=== PATIENT | male | born 1945 | race Caucasian/White ===

== ENCOUNTER → 2019-03-23 | Outpatient (REF) | payer MEDICARE ==
[2019-03-23 15:21] LABS: CHLAMYDIA DNA AMPLIFICATION NEGATIVE (NEGATIVE); GC DNA AMPLIFICATION NEGATIVE (NEGATIVE)
== END ==
LOC: M LAB REF 13:23
PROVIDERS: ATTEND Nurse Practitioner Adult Health
DX: R30.0 Dysuria (principal)

== ENCOUNTER → 2021-02-13 | Outpatient (CLI) | payer MEDICARE ==
--- NOTE | 2021-02-13 09:00 | REP ---
INDICATION: AAA, LUNG CANCER SCREENING. COMPARISON: None. TECHNIQUE: Retroperitoneal sonography. Abdominal aortic aneurysm survey study. FINDINGS: Scanning through the retroperitoneum demonstrates that the abdominal aorta is normal in caliber at the level of the diaphragmatic hiatus measuring 2.7 x 2.7 cm in AP by transverse dimension respectively. The measurements of the aorta at the level of the renal artery origins is 2.1 x 2.0 cm, AP by transverse dimension respectively. The distal aorta tapers to 1.9 x 2.6 cm AP by transverse dimension. The right and left common iliac arteries are normal measuring 1.0 and 1.0 cm in AP dimension respectively. No aneurysm is seen. No periaortic disease is observed. Mild diffuse plaquing is noted. IMPRESSION: Negative abdominal aortic sonography. <Electronically signed by Edmundo Vanegas > 02/13/21 0835
--- NOTE | 2021-02-13 09:27 | REP ---
INDICATION: AAA, LUNG CANCER SCREENING- U/S FIRST. COMPARISON: Comparison chest x-ray February 13, 2016.. TECHNIQUE: Dose reduction was performed utilizing CARE dose with automated adjustment of the kV and MAS according to patient size; iterative reconstruction, automated exposure control, as well as adaptive dose shielding. Helical scanning is acquired and 3 mm axial images are provided at lung only windows. FINDINGS: Digital preliminary electronic console display operator radiograph is unremarkable. There is some vascular calcification in the aorta, great vessels, and coronary arteries mild in degree. There is no evidence of infiltrate, mass, or significant pulmonary parenchymal nodule. However, there is a rounded density partially surrounded by epicardial fat in the right anterior cardiophrenic angle region measuring 1.6 cm in greatest diameter. This may be a epicardial lymph node which would be borderline in size or possibly, pleural based nodule in the right middle lobe although this is considered less likely. This is difficult to evaluate in the absence of multiplanar reconstruction images. There is no other evidence of mediastinal adenopathy. Exam is otherwise unremarkable. IMPRESSION: Lung RADS category 0 incomplete. 1.6 cm nodular density in the right cardiophrenic angle, right middle lobe pulmonary parenchymal nodule versus epicardial lymph node. Standard chest CT study recommended with IV contrast and multiplanar re-formation images. <Electronically signed by Edmundo Vanegas > 02/13/21 [id number]
== END ==
LOC: M RAD 06:24
PROVIDERS: ATTEND Internal Medicine
DX: R91.8 Other nonspecific abnormal finding of lung field (principal); F17.210 Nicotine dependence, cigarettes, uncomplicated

== ENCOUNTER → 2021-03-12 | Outpatient (CLI) | payer MEDICARE ==
[~2021-03-12] MED LIST: ISOVUE-370 76% 100ML VIAL As Ordered ONE
--- NOTE | 2021-03-12 16:02 | REP ---
INDICATION: PULMONARY NODULE. COMPARISON: 02/13/2021. TECHNIQUE: CT chest performed following the intravenous administration of 100 cc of Isovue 370. Sagittal and coronal reconstruction images are performed. FINDINGS: As seen on the prior screening lung CT, there is a soft tissue nodule at the right cardiophrenic angle. This measures 1.5 cm in diameter. The margins are irregular. There is a punctate calcification within. The majority of the nodule appears to be located in the epicardial fat pad, but the nodule does project somewhat into the right middle lobe. No other pulmonary nodule is seen bilaterally. There is no infiltrate. There is no mediastinal, hilar or chest wall lymphadenopathy. There is no pleural or pericardial effusion. The heart is normal in size. The thoracic aorta is normal in caliber with no aneurysm or dissection. The visualized upper abdominal structures appear unremarkable. There are degenerative changes of the spine without compression deformity. IMPRESSION: Soft tissue nodule at the right cardiophrenic angle primarily located within the epicardial fat. Its margins are irregular and maximum diameter is 1.5 cm. It contains a punctate calcification. Recommend tissue sampling or PET-CT to further evaluate. <Electronically signed by Graham Delong > 03/12/21 [id number]
== END ==
LOC: M RAD 13:53
PROVIDERS: ATTEND Nurse Practitioner Adult Health
DX: R91.1 Solitary pulmonary nodule (principal)
CPT/HCPCS: 71260; Q9967

== ENCOUNTER → 2021-03-18 | Outpatient (CLI) | payer MEDICARE ==
--- NOTE | 2021-03-18 14:08 | REP ---
INDICATION: VERTIGO W/ MARKS'S. COMPARISON: No comparison brain imaging.. TECHNIQUE: Axial and sagittal imaging planes are utilized for T1 and T2-weighted scans. Sequences include spin-echo, fast spin echo, FLAIR, and diffusion weighted sequences. Gadolinium enhancement dose is 18 mL of intravenous ProHance. Post gadolinium enhanced MR T1 weighted images are acquired in all 3 planes. FINDINGS: No bony calvarial lesion is seen. Craniocervical junction upper cervical cord are normal in appearance. There is T2 hyperintense fluid occupying much of the left mastoid sinus. There is no other MR evidence of significant paranasal sinus disease.. No intraorbital abnormality is appreciated. The deep facial soft tissues are unremarkable and symmetric. There is no evidence of intracranial hemorrhage or mass lesion. There are numerous foci of subcortical and periventricular white matter hyperintensity on FLAIR images bilaterally throughout the supratentorial brain. There are dilated perivascular space is noted. This latter finding is a normal variant. Diffusion-weighted scans show no evidence to suggest acute ischemia or other cause of restricted diffusion. No extra-axial fluid collection or midline shift is seen. Postcontrast imaging shows enhancement in normal vasculature. No abnormal contrast enhancement is appreciated. IMPRESSION: Numerous foci of T2 hyperintensity in the subcortical and periventricular white matter of the supratentorial brain bilaterally. This is most compatible with small vessel atherosclerotic changes. No abnormal contrast enhancement is seen. There is no evidence of mass, infarction, or bleed. There is T2 hyperintense fluid occupying much of the left mastoid sinus consistent with left mastoid sinusitis. <Electronically signed by Edmundo Vanegas > 03/18/21 [id number]
== END ==
LOC: M PLARAD 12:35
PROVIDERS: ATTEND Nurse Practitioner Adult Health
DX: R51.9 Headache, unspecified (principal); R42 Dizziness and giddiness

== ENCOUNTER → 2021-04-14 | Outpatient (CLI) | payer MEDICARE ==
--- NOTE | 2021-04-15 09:41 | REP ---
INDICATION: DIAGNOSING SOLITARY PULMONARY NODULE R91.1. COMPARISON: None. TECHNIQUE: After the intravenous administration of 9.49 mCi of FDG 18 triplane whole-body PET-CT was performed from the skull base to the mid thigh. Previous CT scan of the chest 03/12/2021 was reviewed. FINDINGS: There is no abnormal hypermetabolic activity seen in the neck, chest, abdomen, or pelvis. The nodule seen on the previous CT in the right anterior cardiophrenic angle shows no avidity for FDG 18 at all. IMPRESSION: Negative PET-CT as described above. <Electronically signed by Yuri Contreras > 04/15/21 0910
== END ==
LOC: M PLARAD 08:50
PROVIDERS: ATTEND Nurse Practitioner Adult Health
DX: R91.1 Solitary pulmonary nodule (principal)
CPT/HCPCS: 78815; A9552

== ENCOUNTER → 2021-07-31 | Outpatient (CLI) | payer MEDICARE ==
[~2021-07-31] MED LIST changes: +ATOR40TA75 PO; +ELIQ5TAB PO; +FLUTISP; +INVO300T PO; -ISOVUE-370 76% 100ML VIAL As Ordered ONE; +METF10004 PO; +OZEM2INJ2 ID; +TAMS1CAP17 PO
--- NOTE | 2021-07-31 08:57 | PFTRPT ---
Site: [facility], [address] [place] [address], [id number] ID: [id number] Name: ARIEL LAUGHLIN Visit Date: 07/31/2021 Second ID: [id number] Referring Doctor: Iglesia Flores MD Reviewing Doctor: Iglesia Flores MD Circle Beveler: Arlene WEEMS, NARESH Age: 75 : 1945 Sex: Male Race: Height: 70.00 Inches Weight: 200.00 Lbs BSA: 2.09 Order IDs: [id number] Requested Test(s): <RESP-PFT.PFT B/A> Diagnosis: R91.8 test meet the ATS standards for acceptability and repeatability. Pt was given four puffs of albuterol for post bronchodilator. The results of this test appear to be valid, although the ATS standard for "end of test" was not met. Review Status: Not Reviewed Pre-Bronch Post-Bronch Pred Actual %Pred Actual %Chng SPIROMETRY FVC (L) 4.28 3.68 86 3.47 -5 FEV1 (L) 3.11 2.79 89 2.79 FEV1/FVC (%) 73 76 103 81 6 FEF 25% (L/sec) 7.11 7.57 106 7.80 3 FEF 50% (L/sec) 4.06 3.28 80 3.18 -2 FEF 75% (L/sec) 1.12 0.61 54 0.66 8 FEF 25-75% (L/sec) 2.28 2.18 95 2.13 -2 FEF Max (L/sec) 7.95 9.13 114 9.45 3 FIVC (L) 3.66 3.68 FIF 50% (L/sec) 4.36 3.89 89 4.83 23 FIF Max (L/sec) 4.36 5.54 27 MVV (L/min) 123 74 60 Expiratory Time (sec) 7.60 4.50 -40 Back Extrap Vol (L) 0.08 0.08 -3 Time To FEFmax (sec) 0.051 0.053 3 LUNG VOLUMES SVC (L) 4.51 3.66 81 IC (L) 3.27 2.63 80 ERV (L) 1.24 1.03 83 TGV (L) 3.77 3.55 94 RV (Pleth) (L) 2.53 2.52 99 TLC (Pleth) (L) 7.04 6.18 87 RV/TLC (Pleth) (%) 37 41 110 DIFFUSION DLCOunc (ml/min/mmHg) 25.24 18.75 74 DLCOcor (ml/min/mmHg) 25.24 20.59 81 DL/VA (ml/min/mmHg/L) 3.59 3.86 107 VA (L) 7.04 5.34 75 BHT (sec) 10.33 IVC (L) 3.42 TLC (SB) (L) 5.49 AIRWAYS RESISTANCE Raw (cmH2O/L/s) 1.45 0.63 43 Gaw (L/s/cmH2O) 1.03 1.64 158 sRaw (cmH2O*s) 4.76 2.16 45 sGaw (1/cmH2O*s) 0.20 0.47 236 BLOOD GASES Hgb (gm/dL) 11.8
== END ==
LOC: M CARPUL 08:06
PROVIDERS: ATTEND Internal Medicine Pulmonary Disease
DX: R91.8 Other nonspecific abnormal finding of lung field (principal)

== ENCOUNTER → 2021-12-01 | Outpatient (CLI) | payer MEDICARE ==
[~2021-12-01] MED LIST changes: +PROHANCE 279.3MG/ML 15ML VIAL ONE; +PROHANCE 279.3MG/ML 5ML VIAL ONE
== END ==
LOC: M PLAIMG 12:06
PROVIDERS: ATTEND Nurse Practitioner Adult Health
DX: S06.35 Traumatic hemorrhage of left cerebrum (principal); X58.XXXS Exposure to other specified factors, sequela
CPT/HCPCS: 70553; A9576

== ENCOUNTER → 2022-01-20 | Outpatient (REF) | payer MEDICARE ==
[~2022-01-20] MED LIST changes: -PROHANCE 279.3MG/ML 15ML VIAL ONE; -PROHANCE 279.3MG/ML 5ML VIAL ONE
[2022-01-22 10:53] LABS: PTT LUPUS TYPE ANTICOAG SCREEN 1.2 (0-1.2)
[2022-01-22 10:59] LABS: DRVV CONFIRM 38.4 SEC
[2022-01-22 11:05] LABS: NORMALIZED RATIO 1.2 (0.00-1.20)
[2022-01-24 04:07] LABS: HEXAGONAL PHASE PHOSPHOLIPID 2 sec (0-11)
== END ==
LOC: M LAB REF 16:02
PROVIDERS: ATTEND Internal Medicine
DX: Z86.711 Personal history of pulmonary embolism (principal); Z79.899 Other long term (current) drug therapy

== ENCOUNTER → 2022-02-17 | Outpatient (CLI) | payer MEDICARE | LOC: M PLAIMG 11:11 | PROVIDERS: ATTEND Internal Medicine Pulmonary Disease | DX: R91.8 Other nonspecific abnormal finding of lung field (principal) ==

== ENCOUNTER 2023-03-30 13:06 | Emergency (ER) | payer MEDICARE ==
[~2023-03-30] VITALS: Ht 177.8 cm; Wt 93.0 kg
[~2023-03-30 13:06] MED LIST changes: +FLUT50SP17; -FLUTISP
[2023-03-30 15:44] LABS: INR 0.94; PROTHROMBIN TIME 12.8 SECONDS (12.5-14.5)
[2023-03-30 15:45] LABS: PARTIAL THROMBOPLASTIN TIME 28.6 SECONDS (24.8-34.2)
[2023-03-30] MEDS ORDERED: ELIQ5TAB PO (15:57)
[2023-03-30 16:09] VITALS: BP 159/85
== END 2023-03-30 16:11 | disposition home or self-care (01) ==
LOC: M ED 13:06
DX: I82.401 Acute embolism and thrombosis of unspecified deep veins of right lower extremity (principal); E11.9 Type 2 diabetes mellitus without complications; F17.200 Nicotine dependence, unspecified, uncomplicated; Z88.0 Allergy status to penicillin; Z79.01 Long term (current) use of anticoagulants; Z79.899 Other long term (current) drug therapy

== ENCOUNTER → 2023-04-05 | Outpatient (CLI) | payer MEDICARE | LOC: M RAD 11:05 | PROVIDERS: ATTEND Internal Medicine Pulmonary Disease | DX: R91.8 Other nonspecific abnormal finding of lung field (principal) ==

== ENCOUNTER → 2024-10-24 | Outpatient (CLI) | payer MEDICARE ==
[~2024-10-24] MED LIST changes: -FLUT50SP17; +FLUTISP
== END ==
LOC: M RAD 07:43
PROVIDERS: ATTEND Nurse Practitioner Adult Health
DX: Z12.2 Encounter for screening for malignant neoplasm of respiratory organs (principal); F17.210 Nicotine dependence, cigarettes, uncomplicated

== ENCOUNTER → 2025-03-06 | Outpatient (CLI) | payer MEDICARE | LOC: M RAD 10:49 | PROVIDERS: ATTEND Nurse Practitioner Adult Health | DX: R91.8 Other nonspecific abnormal finding of lung field (principal) ==